=== PATIENT | male | born 1945 | race Caucasian/White ===

== ENCOUNTER 2023-04-28 11:12 | Inpatient (IN) | payer OTHER, SELFPAY ==
[2023-04-28 11:13] VITALS: BP 115/75; PULSE 95; RESP 18; TEMP 37.2; O2SAT 97
--- NOTE | 2023-04-28 11:30 | DI.RAD_ITS ---
Exam(s) XR TIB/FIB LT EXAM: XR TIB/FIB LT CLINICAL HISTORY: diabetic, redness. TECHNIQUE: 2D digital imaging was performed. COMPARISON: No exams were available for comparison FINDINGS: Two views There is no evidence of fracture of the tibia and fibula. Moderate degenerative changes are noted in the medial compartment of the knee. Tibial plateau is intact. There is edema throughout the foot and calf. No radiographic evidence of osteomyelitis of the tibia and fibula. IMPRESSION: No acute osseous findings. Abundant soft tissue swelling in the foot and calf. DATA REPOSITORY: RADIATION DOSE DELIVERED:
--- NOTE | 2023-04-28 11:41 | W.ED.GENAD ---
Discharge Plan Disposition Patient Disposition: Admit to [facility] Condition: Stable Discharge Details Clinical Impression: Necrosis of toe, Cellulitis of left leg, Atrial fibrillation, Diabetes mellitus type 2 in obese, Osteomyelitis of great toe of left foot Admit Date/Time: 04/28/23 14:12 Admit Provider: Cholo Craven Attending Provider: Cholo Craven Primary Care Provider: Mckayla,Local ED Provider: Mary Anderson Discharge Data Discharge Date/Time-TO BE ENTERED AT DEPARTURE: 04/28/23 16:11 Medical Decision Making This 78-year-old male with history of insulin-dependent diabetes presents with left foot infection States that started 2 days prior to arrival. Visiting from out of town, anticoagulated on Coumadin We will order x-rays, diagnostic blood work, and IV antibiotics with likely admission to the hospital INR 3.9, no active bleeding, will hold dose of Coumadin 's mild leukocytosis, 11,000, creatinine 2.0, suspect CKD but unfortunately [place] is from [place] state and we have had difficulty obtaining his records Case discussed with orthopedics after discussion with hospitalist and consult was performed by Cholo Martini, physician medical record assistant, in conjunction with consultation with Dr. Ibrahim, no indication for emergent great toe amputation, will treat with IV antibiotics, Vanco and Zosyn initiated Lactate negative, low suspicion for sepsis Patient agreeable to admission at this time Vanco Zosyn initiated, will hold Coumadin, INR 3.9, creatinine clearance 45, recommendation to continue full dose vancomycin Case discussed with Dr. [place], hospitalist, agreeable to admission at this time, full CODE STATUS HPI General Date/Time Provider Initiated Documentation: 04/28/23 11:22. HPI Narrative: This 78-year-old male presents with report of left lower leg and foot pain which he reports started on Tuesday. He is visiting from [place] and has been here approximately 2 weeks. Denies any fever. States he is in discomfort. States he has insulin-dependent diabetic and has a history of atrial flutter for which she takes Coumadin for. States he has a history of foot infections in the past. States his blood sugar was 92 this morning. Related Data Home Medications Medication Instructions Recorded Confirmed albuterol sulfate 90 mcg/actuation 2 puff inhalation PRN PRN 04/28/23 04/28/23 aerosol inhaler atorvastatin 40 mg tablet 40 mg PO DAILY 04/28/23 04/28/23 cholecalciferol (vitamin D3) 10 10 mcg PO DAILY 04/28/23 04/28/23 mcg (400 unit) tablet cyanocobalamin (vitamin B-12) 1,000 mcg IM QMONTH 04/28/23 04/28/23 1,000 mcg/mL injection kit empagliflozin 25 mg tablet 12.5 mg PO DAILY 04/28/23 04/28/23 latanoprost 0.005 % eye drops 1 drp ophthalmic (eye) DAILY 04/28/23 04/28/23 levothyroxine 200 mcg capsule 200 mcg PO DAILY 04/28/23 04/28/23 metformin 1,000 mg tablet 1,000 mg PO BID 04/28/23 04/28/23 olodaterol 2.5 mcg/actuation mist 2 inh inhalation DAILY 04/28/23 04/28/23 for inhalation pramipexole 1.5 mg tablet 1.5 mg PO QHS 04/28/23 04/28/23 sacubitril 49 mg-valsartan 51 mg 1 tab PO BID 04/28/23 04/28/23 tablet semaglutide 0.25 mg or 0.5 mg (2 0.5 mg subcut QWEEK 04/28/23 04/28/23 mg/3 mL) subcutaneous pen injector urea 20 % topical cream 1 applic topical BID 04/28/23 04/28/23 warfarin 5 mg tablet 5 mg PO DAILY 04/28/23 04/28/23 Allergies Allergy/AdvReac Type Severity Reaction Status Date / Time Penicillins Allergy Unverified 04/28/23 15:59 poison magno extract Allergy Unverified 04/28/23 15:59 ropinirole Allergy Unverified 04/28/23 15:59 General Stated Complaint: Cellulitis KAELA: 3 PFSH All Active Problems (Updated 04/29/23 @ 08:26 by ANGELIQUE Toro) Cellulitis of left leg (Acute) Restless leg syndrome (Acute) Hypothyroidism (Chronic) Diabetes mellitus type 2 in obese (Acute) Atrial fibrillation (Chronic) Osteomyelitis of great toe of left foot (Acute) Necrosis of toe (Acute) Social History Smoking/Tobacco Use Status: Never Smoking risk assessment performed?: Yes Alcohol Intake: current Alcohol Intake frequency: a few times a week Drug use: Never Substance use type: does not use Do you feel safe at home: Yes Do you feel safe in your relationship?: Yes Exam Narrative Exam Narrative: Patient alert and oriented, no acute distress, lungs clear to auscultation, cardiac rate rhythm regular, alert and oriented x4, bilateral pedal edema, excoriations noted to the second and third right digits without evidence of acute ulceration or cellulitis on right foot, left foot, DP and PT pulses intact, necrotic left toe with cyanosis along the plantar aspect of the great toe, ulceration noted, significantly malodorous, no crepitus, cellulitis with 3+ pedal edema to left lower extremity Course Vital Signs Vital signs: Vital Signs Temperature 37.2 C 04/28/23 11:13 Pulse 95 H 04/28/23 11:13 Respiratory Rate 18 04/28/23 11:13 Blood Pressure 115/75 04/28/23 11:13 Pulse Oximetry 97 04/28/23 11:13 Temperature 37.2 C 04/28/23 11:13 Pulse 95 H 04/28/23 11:13 Respiratory Rate 18 04/28/23 11:13 Respiratory Effort Normal 04/28/23 11:18 Blood Pressure 115/75 04/28/23 11:13 Pulse Oximetry 97 04/28/23 11:13 Pain Level 0 04/28/23 11:13 Lab/Test Results Lab/Test Results: 04/28/23 11:35 Blood Blood Culture - Pending 04/28/23 11:35 Blood Blood Culture - Pending PAWSS Have you Been Recently Intoxicated or Drunk Within the Last 30 days?: No Have you Ever Experienced Previous Episodes of Alcohol Withdrawal?: No Have you ever Experienced Withdrawal Seizures?: No Have you ever Experienced Delirium Tremens(DT)s?: No Have you ever undergone Alcohol Rehabilitation Treatment (i.e, inpt ot outpatient treatment programs)?: No Have you ever Experienced Blackouts?: No Have you ever Combined Alcohol with other Downers within the last 90 days?: No Have you ever Combined Alcohol with any other Substance of Abuse during the last 90 days?: No Positive Blood Alcohol level on Presentation? [PCS.BAL]: No Evidence of Increased Autonomic Activity (i.e. HR>120, tremor, sweating, agitation, nausea)?: No Result: 0
[2023-04-28 11:47] LABS: Lactate 1.2 mmol/L (0.6-1.4)
[2023-04-28 11:51] LABS: Abs Immature Grans 0.07 10^3/uL (0.0-0.06); Absolute Basophil Count 0.04 10^3/uL (0.0-0.2); Absolute Eosinophil Count 0.34 10^3/uL (0.0-0.7); Absolute Lymphocyte Count 2.44 10^3/uL (1.2-3.4); Absolute Monocyte Count 0.91 10^3/uL (0.1-0.8); Absolute Neutrophil Count 8.04 10^3/uL (1.2-6.7); Basophils % 0.3; Eosinophils % 2.9; HCT 34.7 % (40.0-50.0); Immature Grans % 0.6; Lymphocytes % 20.6; MCH 29.4 pg (27.0-33.0); MCHC 31.7 % (32.0-36.0); MCV 93 fL (80-95); MPV 9.6 fL (8.0-11.0); Monocytes % 7.7; Neutrophils % 67.9; Platelet Count 300 10^3/uL (130-400); RBC 3.74 10^6/uL (4.36-5.78); RDW 14.7 % (11.8-14.1); RDW-SD 50.8 fL; WBC 11.84 10^3/uL (4.4-10.8)
[2023-04-28 12:01] LABS: INR 3.9 (0.9-1.1); Prothrombin Time 39.5 sec (9.3-11.0)
[2023-04-28 12:07] LABS: ALT 14 U/L (16-63); AST 10 U/L (15-37); Albumin 3.3 g/dL (3.4-5.0); Alkaline Phosphatase 76 U/L (46-116); Anion Gap 10.8 mmol/L (3-11); BUN 47 mg/dL (7-18); Bilirubin, Total 0.9 mg/dL (0.2-1.0); C-Reactive Protein 12.55 mg/dL (0.0-0.3); CO2 28.2 mmol/L (21.0-32.0); Calcium 9.2 mg/dL (8.5-10.1); Chloride 102 mmol/L (98-107); Estimated GFR 33.95 (mL/min/1.73m2); Glucose 91 mg/dL (74-106); Potassium 4.1 mmol/L (3.5-5.1); Sodium 141 mmol/L (136-145); Total Protein 8.7 g/dL (6.4-8.2)
[2023-04-28] MEDS: PIPERACILLIN/TAZO 3.375 GM in Normal Saline 50 ML IVPB ×2 (12:14→20:39)
[2023-04-28] MEDS: VANCOMYCIN/WATER (PEG) 2 GM/400 ML BAG IV (12:52)
--- NOTE | 2023-04-28 13:26 | DI.RAD_ITS ---
Exam(s) XR FOOT LT COMPLETE EXAM: XR FOOT LT COMPLETE CLINICAL HISTORY: great toe tissue necrosis. TECHNIQUE: 2D digital imaging was performed. COMPARISON: No exams were available for comparison FINDINGS: 3 views There is prominent soft tissue swelling over the dorsal aspect of the foot. No evidence of acute fra cture or diastasis of the Lisfranc joint. There is irregularity of the skin overlying the distal aspect of the great toe. Probably a combinati on of skin loss and a bandage material. There is no evidence of obvious fracture of the distal phala nx of the great toe nor obvious radiographic evidence of osteomyelitis of the tuft of the distal phal anx. There is no gas in the soft tissues. IMPRESSION: Great toe findings as above. No obvious radiographic evidence of osteomyelitis. If clinically indic ated follow-up MRI can be performed. DATA REPOSITORY: RADIATION DOSE DELIVERED:
--- NOTE | 2023-04-28 14:06 | OCONE_ITS ---
Date of service: 04/28/23 Time of Service: 14:06 Assessment and Plan Assessment and plan (1) Necrosis of toe: Status: Acute Assessment and plan: 78-year-old gentleman with left great toe infection due to chronic, poorly controlled diabetes Request from ANGELIQUE Anderson in the ED for orthopedic consultation. Mr. Parra is an insulin-dependent diabetic, history of atrial flutter anticoagulated with warfarin, restless leg syndrome, unknown baseline renal status, presented to the ER for reoccurring left foot infection. Patient states that he was seen by his rn ambulatory in [place] approximately 1 month ago. He would guess his symptoms have been going on for couple of weeks but he noticed bleeding coming from his toe over the past 48 hours and swelling which prompted his ER visit. He is pl anning to return home to [place] on Tuesday by driving. Medical work-up in the ER reveals minimally elevated white blood cell count, elevated CRP, no definitive findings of osteomyelitis on x-ray. Patient received IV vancomycin and Zosyn. The hospitalist team was contacted for a medical admission and IV antibiotics; however, they were concerned that the patient may require toe amputation. Unfortunately the patient is a poor historian and we do not have an accurate depiction of his past medical history or medications, records have been requested. Patient states that his last A1c roughly 1 month ago was 9.2. Physical examination reveals a nontoxic 78-year-old gentleman speaking in full sentences and in no respiratory distress. Pulse is in the 90s. A bilateral lower extremities reveal chronic hyperpigmentation with multiple calluses and dry flaking skin. Left great toe with erythema, warmth, tenderness, swelling. The swelling does extend through the foot. There is also mild erythema spreading proximally. There are 2 areas of necrosis on the great toe, both medially, and the distal tip which extends across almost the entire flexor component of toe, sparing the medial area. The inferior portion of the necrosis is draining a malodorous bloody-purulent drainage. Relatively spares the remainder of the foot and remainder of the toes. Patient appears to have chronic great toe superficial, possibly deep soft tissue necrosis with local cellulitis. X-ray of tib-fib and foot do not reveal any obvious signs of osteomyelitis. White blood cell count 11.84 INR 3.9, creat inine 2.0 lactate of 1.2 CRP 12.55. At this time no clear indication for emergent amputation. Recommend optimizing medical management and antibiotics. Patient is returning to [place], leaves Tuesday. Recommend outpatient follow- up through his podiatry team or referral to vascular surgery for further management of his diabetic great toe and foot. Recommendations: Strict elevation, daily soaks great toe in a 50: 50% saline and peroxide or Betadine. Allowed to dry. Apply dry dressing as needed to absorb drainage. Consider wound care consult. PFSH All Active Problems (Updated 04/28/23 @ 14:38 by Berta Salgado NP) Diabetes mellitus type 2 in obese (Acute) Atrial fibrillation (Chronic) Osteomyelitis of great toe of left foot (Acute) Necrosis of toe (Acute) Social History Smoking/Tobacco Use Status: Never Smoking risk assessment performed?: Yes Alcohol Intake: current Alcohol Intake frequency: a few times a week Drug use: Never Substance use type: does not use Do you feel safe at home: Yes Do you feel safe in your relationship?: Yes Results Last Vital Signs Temp 37.2 C 04/28/23 11:13 Pulse 95 H 04/28/23 11:13 Resp 18 04/28/23 11:13 BP 115/75 04/28/23 11:13 Pulse Ox 97 04/28/23 11:13 Labs 04/28/23 11:40 04/28/23 11:40 Labs: Laboratory Results - last 24 hr 04/28/23 04/28/23 04/28/23 11:40 11:40 11:40 WBC 11.84 H RBC 3.74 L Hgb 11.0 L Hct 34.7 L MCV 93 MCH 29.4 MCHC 31.7 L RDW 14.7 H Plt Count 300 MPV 9.6 Immature Gran % 0.6 Neutrophils % 67.9 Lymphocytes % 20.6 Monocytes % 7.7 Eosinophils % 2.9 Basophils % 0.3 Nucleated RBC % 0.0 Absolute Neutrophils 8.04 H Absolute Lymphocytes 2.44 Absolute Monocytes 0.91 H Absolute Eosinophils 0.34 Absolute Basophils 0.04 PT INR VBG Lactate 1.2 Sodium 141 Potassium 4.1 Chloride 102 Carbon Dioxide 28.2 Anion Gap 10.8 BUN 47 H Creatinine 2.0 H Est GFR (CKD-EPI 2020) 33.95 Glucose 91 Calcium 9.2 Total Bilirubin 0.9 AST 10 L ALT 14 L Alkaline Phosphatase 76 C-Reactive Protein 12.55 H Total Protein 8.7 H Albumin 3.3 L 04/28/23 11:40 WBC RBC Hgb Hct MCV MCH MCHC RDW Plt Count MPV Immature Gran % Neutrophils % Lymphocytes % Monocytes % Eosinophils % Basophils % Nucleated RBC % Absolute Neutrophils Absolute Lymphocytes Absolute Monocytes Absolute Eosinophils Absolute Basophils PT 39.5 H INR 3.9 H VBG Lactate Sodium Potassium Chloride Carbon Dioxide Anion Gap BUN Creatinine Est GFR (CKD-EPI 2020) Glucose Calcium Total Bilirubin AST ALT Alkaline Phosphatase C-Reactive Protein Total Protein Albumin
--- NOTE | 2023-04-28 14:21 | W.PM.HP.N ---
Date of service: 04/28/23 Time of Service: 14:21 Assessment and Plan Assessment and plan (1) Osteomyelitis of great toe of left foot: Status: Acute Assessment and plan: plan to admit to med/surg continue vanco/zosyn follow inflammatory markers elevate as much as possible throughout the day plan outpatient follow up with mock up builder when he returns home next week. (2) Atrial fibrillation: Status: Chronic Assessment and plan: rate controlled, anticoagulated on coumadin. INR 3.9, will hold tonight dose and recheck in am no additional DVT prophylaxis needed at this time. (3) Diabetes mellitus type 2 in obese: Status: Acute Assessment and plan: will continue home diabetes meds (4) Hypothyroidism: Status: Chronic Assessment and plan: continue levothyroxine check TSH (5) Restless leg syndrome: Status: Acute Assessment and plan: continue home medications discussed with DR Craven. History of Present Illness History of Present Illness Chief Complaint: left great toe infection Narrative: This is a 78-year-old male patient with history of diabetes mellitus type 2 who is followed by a mock up builder back in [place] reportedly visiting his [id number] having arrived Tuesday planning to leave next Tuesday. States that his left lower extremity developed significant swelling erythema and pain over the past 2 days prompting his visit here to the emergency department. He states he has had multiple diabetic foot infections and is followed closely by podiatry he last saw his mock up builder about 1 month ago. He denies any fever or chills or signs of systemic infection. His work-up in the emergency department included imaging that is concerning for osteomyelitis. He was seen by orthopedics as we do not have podiatry here and no emergent surgical recommendations at this time. He was given vancomycin and Zosyn and plan is to admit to medical surgical unit for IV antibiotics will down stepped to oral when stable and plan is to follow-up with his mock up builder when he returns home. Review of Systems All systems reviewed & are unremarkable except as noted in HPI and below PFSH All Active Problems (Updated 04/28/23 @ 17:35 by Berta Salgado NP) Restless leg syndrome (Acute) Hypothyroidism (Chronic) Diabetes mellitus type 2 in obese (Acute) Atrial fibrillation (Chronic) Osteomyelitis of great toe of left foot (Acute) Necrosis of toe (Acute) Social History Smoking/Tobacco Use Status: Never Smoking risk assessment performed?: Yes Alcohol Intake: current Alcohol Intake frequency: a few times a week Drug use: Never Substance use type: does not use Do you feel safe at home: Yes Do you feel safe in your relationship?: Yes Meds Allergies and Home Medications Allergies Allergy/AdvReac Type Severity Reaction Status Date / Time Penicillins Allergy Unverified 04/28/23 15:59 poison magno extract Allergy Unverified 04/28/23 15:59 ropinirole Allergy Unverified 04/28/23 15:59 Home Medications Medication Instructions Recorded Confirmed Type albuterol sulfate 90 mcg/actuation 2 puff inhalation PRN PRN 04/28/23 04/28/23 History aerosol inhaler atorvastatin 40 mg tablet 40 mg PO DAILY 04/28/23 04/28/23 History cholecalciferol (vitamin D3) 10 10 mcg PO DAILY 04/28/23 04/28/23 History mcg (400 unit) tablet cyanocobalamin (vitamin B-12) 1,000 mcg IM QMONTH 04/28/23 04/28/23 History 1,000 mcg/mL injection kit empagliflozin 25 mg tablet 12.5 mg PO DAILY 04/28/23 04/28/23 History latanoprost 0.005 % eye drops 1 drp ophthalmic (eye) DAILY 04/28/23 04/28/23 History levothyroxine 200 mcg capsule 200 mcg PO DAILY 04/28/23 04/28/23 History metformin 1,000 mg tablet 1,000 mg PO BID 04/28/23 04/28/23 History olodaterol 2.5 mcg/actuation mist 2 inh inhalation DAILY 04/28/23 04/28/23 History for inhalation pramipexole 1.5 mg tablet 1.5 mg PO QHS 04/28/23 04/28/23 History sacubitril 49 mg-valsartan 51 mg 1 tab PO BID 04/28/23 04/28/23 History tablet semaglutide 0.25 mg or 0.5 mg (2 0.5 mg subcut QWEEK 04/28/23 04/28/23 History mg/3 mL) subcutaneous pen injector urea 20 % topical cream 1 applic topical BID 04/28/23 04/28/23 History warfarin 5 mg tablet 5 mg PO DAILY 04/28/23 04/28/23 History Exam Const General: cooperative, comfortable and no acute distress Nutritional Appearance: obese Orientation: alert, awake and oriented x3 HENMT Head: normal to inspection, normocephalic and atraumatic Face and sinus: normal facial exam Mouth: oral mucosae normal Chest Chest: normal inspection of the chest Resp Effort & Inspection: normal respiratory effort Cardio Rate: regular rate GI Inspection: distended (round abd, soft non tender) Palpation: soft Skin General skin exam: crusts, dry skin, erythema (left, not impressively so, marked and falls just below knee) and other (chronic discoloration to bilateral lower extremities. ) Lesions: lesion noted (left great toe, erythema to 2 and 3 rd digit also) and other (areas of necrosis to left great toe, ) Nails: discolored and yellow and thickened Neuro General: patient alert, patient awake, patient oriented x3 and no focal motor deficits Extrem General: edema Laterality: left (significantly larger than right up to knee, not weeping) Results Labs 04/28/23 11:40 04/28/23 11:40 Labs: Laboratory Results - last 24 hr 04/28/23 04/28/23 04/28/23 11:40 11:40 11:40 WBC 11.84 H RBC 3.74 L Hgb 11.0 L Hct 34.7 L MCV 93 MCH 29.4 MCHC 31.7 L RDW 14.7 H Plt Count 300 MPV 9.6 Immature Gran % 0.6 Neutrophils % 67.9 Lymphocytes % 20.6 Monocytes % 7.7 Eosinophils % 2.9 Basophils % 0.3 Nucleated RBC % 0.0 Absolute Neutrophils 8.04 H Absolute Lymphocytes 2.44 Absolute Monocytes 0.91 H Absolute Eosinophils 0.34 Absolute Basophils 0.04 PT INR VBG Lactate 1.2 Sodium 141 Potassium 4.1 Chloride 102 Carbon Dioxide 28.2 Anion Gap 10.8 BUN 47 H Creatinine 2.0 H Est GFR (CKD-EPI 2020) 33.95 Glucose 91 Calcium 9.2 Total Bilirubin 0.9 AST 10 L ALT 14 L Alkaline Phosphatase 76 C-Reactive Protein 12.55 H Total Protein 8.7 H Albumin 3.3 L 04/28/23 11:40 WBC RBC Hgb Hct MCV MCH MCHC RDW Plt Count MPV Immature Gran % Neutrophils % Lymphocytes % Monocytes % Eosinophils % Basophils % Nucleated RBC % Absolute Neutrophils Absolute Lymphocytes Absolute Monocytes Absolute Eosinophils Absolute Basophils PT 39.5 H INR 3.9 H VBG Lactate Sodium Potassium Chloride Carbon Dioxide Anion Gap BUN Creatinine Est GFR (CKD-EPI 2020) Glucose Calcium Total Bilirubin AST ALT Alkaline Phosphatase C-Reactive Protein Total Protein Albumin Last Vital Signs Temp 37.2 C 04/28/23 11:13 Pulse 95 H 04/28/23 11:13 Resp 18 04/28/23 11:13 BP 115/75 04/28/23 11:13 Pulse Ox 97 04/28/23 11:13 PAWSS Have you Been Recently Intoxicated or Drunk Within the Last 30 days?: No Have you Ever Experienced Previous Episodes of Alcohol Withdrawal?: No Have you ever Experienced Withdrawal Seizures?: No Have you ever Experienced Delirium Tremens(DT)s?: No Have you ever undergone Alcohol Rehabilitation Treatment (i.e, inpt ot outpatient treatment programs)?: No Have you ever Experienced Blackouts?: No Have you ever Combined Alcohol with other Downers within the last 90 days?: No Have you ever Combined Alcohol with any other Substance of Abuse during the last 90 days?: No Positive Blood Alcohol level on Presentation? [PCS.BAL]: No Evidence of Increased Autonomic Activity (i.e. HR>120, tremor, sweating, agitation, nausea)?: No Result: 0 Time Spent Time spent with Patient: 40-54 minutes Time was spent: preparing to see the patient(eg.review tests), obtaining and/or reviewing separately otained hiistory, ordering medications,tests, procedures, indepentently interpreting results and counseling the patient
[2023-04-28 16:01] VITALS: BP 119/66; PULSE 88; RESP 18; O2SAT 95
[2023-04-28 16:23] VITALS: BP 123/74; PULSE 64; RESP 16; TEMP 35.8; O2SAT 96
[2023-04-28 16:31] VITALS: BP 123/74; PULSE 64; RESP 16; TEMP 35.8; O2SAT 96
[2023-04-28 18:25] LABS: Hemoglobin A1C 7.8 % (<5.7)
[2023-04-28 18:28] LABS: TSH (W/Ref FT4) 0.74 uIU/mL (0.36-3.74)
[2023-04-28] MEDS: Normal Saline 1,000 ML 100 ML IV (18:39)
[2023-04-28] MEDS: Sacubitril/Valsartan 49 mg/51 mg TAB 1 EACH PO (22:01)
[2023-04-28] MEDS: Pramipexole 0.25 MG TAB 1.5 MG PO (22:02)
[2023-04-28] MEDS: Melatonin 3 MG TAB PO (22:03)
[2023-04-28] MEDS: Acetaminophen 325 MG TAB 650 MG PO (22:03)
[2023-04-28 22:43] VITALS: BP 115/65; PULSE 87; RESP 18; TEMP 36; O2SAT 95
[2023-04-28] MEDS: VANCOMYCIN 1,000 MG in Normal Saline 250 ML 166.667 MG IVPB (23:55)
[2023-04-29] MEDS: PIPERACILLIN/TAZO 3.375 GM in Normal Saline 50 ML IVPB ×4 (01:56→20:13)
[2023-04-29 06:34] LABS: Abs Immature Grans 0.03 10^3/uL (0.0-0.06); Absolute Basophil Count 0.05 10^3/uL (0.0-0.2); Absolute Eosinophil Count 0.41 10^3/uL (0.0-0.7); Absolute Lymphocyte Count 2.03 10^3/uL (1.2-3.4); Absolute Neutrophil Count 5.36 10^3/uL (1.2-6.7); Basophils % 0.6; Eosinophils % 4.7; HCT 32.1 % (40.0-50.0); Immature Grans % 0.3; Lymphocytes % 23.4; MCH 29.2 pg (27.0-33.0); MCHC 31.2 % (32.0-36.0); MCV 94 fL (80-95); MPV 9.3 fL (8.0-11.0); Monocytes % 9.2; Neutrophils % 61.8; Platelet Count 262 10^3/uL (130-400); RBC 3.42 10^6/uL (4.36-5.78); RDW 14.6 % (11.8-14.1); RDW-SD 50.3 fL; WBC 8.68 10^3/uL (4.4-10.8)
[2023-04-29 06:43] LABS: INR 3.8 (0.9-1.1); Prothrombin Time 38.5 sec (9.3-11.0)
[2023-04-29 06:45] LABS: Anion Gap 9.8 mmol/L (3-11); BUN 38 mg/dL (7-18); C-Reactive Protein 8.45 mg/dL (0.0-0.3); CO2 27.2 mmol/L (21.0-32.0); CREATININE 1.7 mg/dL (0.70-1.30); Calcium 8.9 mg/dL (8.5-10.1); Chloride 107 mmol/L (98-107); Estimated GFR 41.26 (mL/min/1.73m2); Glucose 91 mg/dL (74-106); Potassium 3.6 mmol/L (3.5-5.1); Sodium 144 mmol/L (136-145)
[2023-04-29 07:33] VITALS: BP 94/60; PULSE 69; RESP 18; TEMP 36.3; O2SAT 96
[2023-04-29] MEDS: Cholecalciferol (Vitamin D3) 400 UNIT TAB PO (08:21)
[2023-04-29] MEDS: Empaglifozin 25 MG TAB 12.5 MG PO (08:21)
[2023-04-29] MEDS: Atorvastatin 40 MG TAB PO (08:21)
[2023-04-29] MEDS: metFORMIN 500 MG TAB 1000 MG PO ×2 (08:22→17:21)
[2023-04-29] MEDS: Levothyroxine 100 MCG TAB 200 MCG PO (08:22)
--- NOTE | 2023-04-29 13:07 | PGE_ITS ---
Date of Service Date of service: 04/29/23 Time of Service: 13:07 Assessment and Plan Assessment and plan (1) Osteomyelitis of great toe of left foot: Status: Acute Assessment and plan: improved overnight with IV abx and elevation continue vanco/zosyn day 2 inflammatory markers improving elevate as much as possible throughout the day plan outpatient follow up with switching operator when he returns home next week. (2) Atrial fibrillation: Status: Chronic Assessment and plan: rate controlled, anticoagulated on coumadin. INR 3.8, will hold again tonight dose and recheck in am no additional DVT prophylaxis needed at this time. (3) Diabetes mellitus type 2 in obese: Status: Acute Assessment and plan: will continue home diabetes meds A1C 7.8 (4) Hypothyroidism: Status: Chronic Assessment and plan: continue levothyroxine TSH 0.74 (5) Restless leg syndrome: Status: Acute Assessment and plan: continue home medications (6) Obstructive sleep apnea: Status: Chronic Assessment and plan: continue home cpap when sleeping (7) Discharge planning issues: Status: Acute Assessment and plan: plan to downstep to oral antibiotics so he can return home for definitive care with his outpatient team discussed with DR Craven Subjective Subjective Patient reports: no new complaints and feels better Interval history since last seen: decreased swelling and redness Exam Const General: cooperative, comfortable and no acute distress Nutritional Appearance: obese Orientation: alert, awake and oriented x3 HENMT Head: normal to inspection, normocephalic and atraumatic Face and sinus: normal facial exam Mouth: oral mucosae normal Chest Chest: normal inspection of the chest Resp Effort & Inspection: normal respiratory effort Cardio Rate: regular rate GI Inspection: distended (round abd, soft non tender) Palpation: soft Skin General skin exam: crusts, dry skin, erythema (left, not impressively so, marked and falls just below knee) and other (chronic discoloration to bilateral lower extremities. ) Lesions: lesion noted (left great toe, erythema to 2 and 3 rd digit also) and other (areas of necrosis to left great toe, ) Nails: discolored and yellow and thickened Neuro General: patient alert, patient awake, patient oriented x3 and no focal motor deficits Extrem General: edema Laterality: left (significantly larger than right up to knee, not weeping) Objective Last Vital Signs Temp 36.3 C L 04/29/23 07:33 Pulse 69 04/29/23 07:33 Resp 18 04/29/23 07:33 BP 94/60 L 04/29/23 07:33 Pulse Ox 96 04/29/23 07:33 Laboratory Results - last 24 hr 04/28/23 04/28/23 04/29/23 11:40 11:40 06:07 WBC RBC Hgb Hct MCV MCH MCHC RDW Plt Count MPV Immature Gran % Neutrophils % Lymphocytes % Monocytes % Eosinophils % Basophils % Nucleated RBC % Absolute Neutrophils Absolute Lymphocytes Absolute Monocytes Absolute Eosinophils Absolute Basophils PT INR Sodium 144 Potassium 3.6 Chloride 107 Carbon Dioxide 27.2 Anion Gap 9.8 BUN 38 H Creatinine 1.7 H Est GFR (CKD-EPI 2020) 41.26 Glucose 91 Hemoglobin A1c 7.8 H Calcium 8.9 C-Reactive Protein 8.45 H TSH 0.74 04/29/23 04/29/23 06:07 06:07 WBC 8.68 RBC 3.42 L Hgb 10.0 L Hct 32.1 L MCV 94 MCH 29.2 MCHC 31.2 L RDW 14.6 H Plt Count 262 MPV 9.3 Immature Gran % 0.3 Neutrophils % 61.8 Lymphocytes % 23.4 Monocytes % 9.2 Eosinophils % 4.7 Basophils % 0.6 Nucleated RBC % 0.0 Absolute Neutrophils 5.36 Absolute Lymphocytes 2.03 Absolute Monocytes 0.80 Absolute Eosinophils 0.41 Absolute Basophils 0.05 PT 38.5 H INR 3.8 H Sodium Potassium Chloride Carbon Dioxide Anion Gap BUN Creatinine Est GFR (CKD-EPI 2020) Glucose Hemoglobin A1c Calcium C-Reactive Protein TSH PAWSS Have you Been Recently Intoxicated or Drunk Within the Last 30 days?: No Have you Ever Experienced Previous Episodes of Alcohol Withdrawal?: No Have you ever Experienced Withdrawal Seizures?: No Have you ever Experienced Delirium Tremens(DT)s?: No Have you ever undergone Alcohol Rehabilitation Treatment (i.e, inpt ot outpatient treatment programs)?: No Have you ever Experienced Blackouts?: No Have you ever Combined Alcohol with other Downers within the last 90 days?: No Have you ever Combined Alcohol with any other Substance of Abuse during the last 90 days?: No Positive Blood Alcohol level on Presentation? [PCS.BAL]: No Evidence of Increased Autonomic Activity (i.e. HR>120, tremor, sweating, agitation, nausea)?: No Result: 0 Time Spent with Patient Time Spent with Patient: 35-49 minutes Time was spent: preparing to see the patient(eg.review tests), obtaining and/or reviewing separately otained hiistory, ordering medications,tests, procedures, indepentently interpreting results and counseling the patient
[2023-04-29 15:20] VITALS: BP 100/60; PULSE 61; TEMP 35.7; O2SAT 98
[2023-04-29] MEDS: Insulin Aspart 300 UNITS/3 ML PEN SC (17:20)
--- NOTE | 2023-04-29 17:55 | INITIAL_ITS ---
Date of service: 04/29/23 Time of Service: 18:34 Care Management Initial Assmt Initial Assessment REASON FOR HOSPITALIZATION:: Osteomyelitis, Diabetic foot infection; great toe of left foot CURRENT FUNCTIONAL STATUS:: Planning to return to [place] on Tuesday. ADVANCE DIRECTIVES:: None on file INSURANCE COVERAGE / FINANCIAL ISSUES:: [facility] PRIMARY CARE PHYSICIAN:: No local POTENTIAL DISCHARGE NEEDS:: improved overnight with IV abx and elevation continue vanco/zosyn day 2 inflammatory markers improving elevate as much as possible throughout the day plan outpatient follow up with silverware etcher when he returns home next week. PLAN:: Per provider, Wilfred plans on returning to [place] on Tuesday, he is agreeable to IV ABX treatment until he leaves. Clinical information will be provided to patient on discharge and scanned to local providers in his home state. PFSH All Active Problems (Updated 04/29/23 @ 13:11 by Berta Salgado NP) Discharge planning issues (Acute) Obstructive sleep apnea (Chronic) Cellulitis of left leg (Acute) Restless leg syndrome (Acute) Hypothyroidism (Chronic) Diabetes mellitus type 2 in obese (Acute) Atrial fibrillation (Chronic) Osteomyelitis of great toe of left foot (Acute) Necrosis of toe (Acute) Social History Smoking/Tobacco Use Status: Never Smoking risk assessment performed?: Yes Alcohol Intake: current Alcohol Intake frequency: a few times a week Drug use: Never Substance use type: does not use Do you feel safe at home: Yes Do you feel safe in your relationship?: Yes
[2023-04-29] MEDS: Acetaminophen 325 MG TAB 650 MG PO (20:12)
[2023-04-29] MEDS: Sacubitril/Valsartan 49 mg/51 mg TAB 1 EACH PO (20:13)
[2023-04-29] MEDS: Melatonin 3 MG TAB PO (20:13)
[2023-04-29 21:53] VITALS: BP 104/66; PULSE 62; RESP 16; TEMP 36; O2SAT 97
[2023-04-29] MEDS: Latanoprost 0.005% 2.5 ML BTL OU (21:55)
[2023-04-29] MEDS: Pramipexole 0.25 MG TAB 1.5 MG PO (21:55)
[2023-04-29] MEDS: VANCOMYCIN/WATER (PEG) 1 GM/200 ML BAG IV (23:54)
[2023-04-30] MEDS: PIPERACILLIN/TAZO 3.375 GM in Normal Saline 50 ML IVPB ×4 (01:38→21:06)
[2023-04-30 04:52] VITALS: BP 103/69; PULSE 91; RESP 16; TEMP 36; O2SAT 97
[2023-04-30] MEDS: Levothyroxine 100 MCG TAB 200 MCG PO (04:55)
[2023-04-30] MEDS: Acetaminophen 325 MG TAB 650 MG PO (04:55)
[2023-04-30 06:53] LABS: INR 2.9 (0.9-1.1); Prothrombin Time 29.2 sec (9.3-11.0)
[2023-04-30 08:00] VITALS: BP 102/62; PULSE 63; RESP 16; TEMP 35.5; O2SAT 98
[2023-04-30] MEDS: Atorvastatin 40 MG TAB PO (08:17)
[2023-04-30] MEDS: Insulin Aspart 300 UNITS/3 ML PEN SC ×3 (08:17→17:43)
[2023-04-30] MEDS: Empaglifozin 25 MG TAB 12.5 MG PO (08:18)
[2023-04-30] MEDS: Cholecalciferol (Vitamin D3) 400 UNIT TAB PO (08:18)
[2023-04-30] MEDS: metFORMIN 500 MG TAB 1000 MG PO ×2 (08:18→17:44)
[2023-04-30] MEDS: Sacubitril/Valsartan 49 mg/51 mg TAB 1 EACH PO ×2 (08:18→21:59)
--- NOTE | 2023-04-30 11:59 | PGE_ITS ---
Date of Service Date of service: 04/30/23 Time of Service: 11:59 Assessment and Plan Assessment and plan (1) Osteomyelitis of great toe of left foot: Status: Acute Assessment and plan: continues to show improvement with IV abx and elevation, now stated pain resolved continue vanco/zosyn day 3 inflammatory markers improving elevate as much as possible throughout the day plan outpatient follow up with server security administrator when he returns home next week. (2) Atrial fibrillation: Status: Chronic Assessment and plan: rate controlled, anticoagulated on coumadin. INR 2.9, will resume coumadin and closely follow no additional DVT prophylaxis needed at this time. (3) Diabetes mellitus type 2 in obese: Status: Acute Assessment and plan: blood sugars well controlled, will continue home diabetes meds A1C 7.8 (4) Hypothyroidism: Status: Chronic Assessment and plan: continue levothyroxine TSH 0.74 (5) Restless leg syndrome: Status: Acute Assessment and plan: continue home medications (6) Obstructive sleep apnea: Status: Chronic Assessment and plan: continue home cpap when sleeping (7) Discharge planning issues: Status: Acute Assessment and plan: plan to downstep to oral antibiotics so he can return home for definitive care with his outpatient team discussed with DR Jackson Subjective Subjective Patient reports: no new complaints, feels better, pain is less, tolerating liquids well, tolerating a regular diet, voiding w/o difficulty and afebrile Exam Const General: cooperative, comfortable and no acute distress Nutritional Appearance: obese Orientation: alert, awake and oriented x3 HENMT Head: normal to inspection, normocephalic and atraumatic Face and sinus: normal facial exam Mouth: oral mucosae normal Chest Chest: normal inspection of the chest Resp Effort & Inspection: normal respiratory effort Cardio Rate: regular rate GI Inspection: distended (round abd, soft non tender) Palpation: soft Skin General skin exam: crusts, dry skin, erythema (left, not impressively so, marked and falls just below knee) and other (chronic discoloration to bilateral lower extremities. ) Lesions: lesion noted (left great toe, erythema to 2 and 3 rd digit also) and other (areas of necrosis to left great toe, ) Nails: discolored and yellow and thickened Neuro General: patient alert, patient awake, patient oriented x3 and no focal motor deficits Extrem General: edema Laterality: left (significantly larger than right up to knee, not weeping) Objective Last Vital Signs Temp 35.5 C L 04/30/23 08:00 Pulse 63 04/30/23 08:00 Resp 16 04/30/23 08:00 BP 102/62 04/30/23 08:00 Pulse Ox 98 04/30/23 08:00 Laboratory Results - last 24 hr 04/29/23 04/30/23 22:58 06:10 PT 29.2 H INR 2.9 H Vancomycin Trough 15.0 PAWSS Have you Been Recently Intoxicated or Drunk Within the Last 30 days?: No Have you Ever Experienced Previous Episodes of Alcohol Withdrawal?: No Have you ever Experienced Withdrawal Seizures?: No Have you ever Experienced Delirium Tremens(DT)s?: No Have you ever undergone Alcohol Rehabilitation Treatment (i.e, inpt ot outpatient treatment programs)?: No Have you ever Experienced Blackouts?: No Have you ever Combined Alcohol with other Downers within the last 90 days?: No Have you ever Combined Alcohol with any other Substance of Abuse during the last 90 days?: No Positive Blood Alcohol level on Presentation? [PCS.BAL]: No Evidence of Increased Autonomic Activity (i.e. HR>120, tremor, sweating, agitation, nausea)?: No Result: 0 Time Spent with Patient Time Spent with Patient: 35-49 minutes Time was spent: preparing to see the patient(eg.review tests), obtaining and/or reviewing separately otained hiistory, ordering medications,tests, procedures, indepentently interpreting results and counseling the patient
[2023-04-30 15:08] VITALS: BP 118/68; PULSE 60; RESP 18; TEMP 36.5; O2SAT 98
[2023-04-30] MEDS: Latanoprost 0.005% 2.5 ML BTL OU (22:00)
[2023-04-30] MEDS: Pramipexole 0.25 MG TAB 1.5 MG PO (22:00)
[2023-04-30] MEDS: Warfarin 5 MG TAB PO (22:00)
[2023-04-30 23:00] VITALS: BP 116/63; PULSE 90; RESP 18; TEMP 35.5; O2SAT 97
[2023-05-01] MEDS: VANCOMYCIN/WATER (PEG) 1 GM/200 ML BAG IV (00:08)
[2023-05-01] MEDS: Acetaminophen 325 MG TAB 650 MG PO (00:14)
[2023-05-01] MEDS: PIPERACILLIN/TAZO 3.375 GM in Normal Saline 50 ML IVPB ×4 (03:00→19:57)
[2023-05-01 06:16] LABS: INR 2.4 (0.9-1.1)
[2023-05-01] MEDS: Levothyroxine 100 MCG TAB 200 MCG PO (06:25)
--- NOTE | 2023-05-01 07:02 | RESPIRATORY ---
Addendum entered by Chevy Lujan 05/01/23 07:03: Model: ResMed [id number] Original Note: Pt's own CPAP machine Auto-CPAP Min: 6 cmH2O Max: 20 cmH2O No O2 bleed in. DME: [facility].
[2023-05-01 07:56] VITALS: BP 109/70; PULSE 93; RESP 18; TEMP 37; O2SAT 94
[2023-05-01] MEDS: Insulin Aspart 300 UNITS/3 ML PEN SC ×3 (08:49→16:29)
[2023-05-01] MEDS: metFORMIN 500 MG TAB 1000 MG PO ×2 (08:50→16:29)
[2023-05-01] MEDS: Cholecalciferol (Vitamin D3) 400 UNIT TAB PO (08:51)
[2023-05-01] MEDS: Sacubitril/Valsartan 49 mg/51 mg TAB 1 EACH PO ×2 (08:51→19:56)
[2023-05-01] MEDS: Empaglifozin 25 MG TAB 12.5 MG PO (08:52)
[2023-05-01] MEDS: Atorvastatin 40 MG TAB PO (08:53)
[2023-05-01] MEDS: Normal Saline Flush 10 ML SYR (09:11)
[2023-05-01 10:50] VITALS: BP 118/64; PULSE 88; RESP 18; TEMP 36.5; O2SAT 97
--- NOTE | 2023-05-01 13:33 | W.PM.PROGNOT ---
Date of Service Date of service: 05/01/23 Time of Service: 13:34 Assessment and Plan Assessment and plan (1) Osteomyelitis of great toe of left foot: Status: Acute Assessment and plan: continues to show improvement with IV abx and elevation, now stated pain resolved continue vanco/zosyn day 4 inflammatory markers improving elevate as much as possible throughout the day plan outpatient follow up with strategic partnership representative when he returns home next week. (2) Atrial fibrillation: Status: Chronic Assessment and plan: rate controlled, anticoagulated on coumadin. INR 2.9, will resume coumadin and closely follow no additional DVT prophylaxis needed at this time. (3) Diabetes mellitus type 2 in obese: Status: Acute Assessment and plan: blood sugars well controlled, will continue home diabetes meds A1C 7.8 (4) Hypothyroidism: Status: Chronic Assessment and plan: continue levothyroxine TSH 0.74 (5) Restless leg syndrome: Status: Acute Assessment and plan: continue home medications (6) Obstructive sleep apnea: Status: Chronic Assessment and plan: continue home cpap when sleeping (7) Discharge planning issues: Status: Acute Assessment and plan: plan to downstep to oral antibiotics so he can return home for definitive care with his outpatient team discussed with DR Jackson Subjective Subjective Patient reports: no new complaints, feels better, pain is less (resolved), tolerating liquids well, tolerating a regular diet and afebrile Exam Const General: cooperative, comfortable and no acute distress Nutritional Appearance: obese Orientation: alert, awake and oriented x3 HENMT Head: normal to inspection, normocephalic and atraumatic Face and sinus: normal facial exam Mouth: oral mucosae normal Chest Chest: normal inspection of the chest Resp Effort & Inspection: normal respiratory effort Cardio Rate: regular rate GI Inspection: distended (round abd, soft non tender) Palpation: soft Skin General skin exam: crusts, dry skin, erythema (left, not impressively so, marked and falls just below knee) and other (chronic discoloration to bilateral lower extremities. ) Lesions: lesion noted (left great toe, erythema to 2 and 3 rd digit also) and other (areas of necrosis to left great toe, ) Nails: discolored and yellow and thickened Neuro General: patient alert, patient awake, patient oriented x3 and no focal motor deficits Extrem General: edema Laterality: left (significantly larger than right up to knee, not weeping) Objective Last Vital Signs Temp 36.5 C 05/01/23 10:50 Pulse 88 05/01/23 10:50 Resp 18 05/01/23 10:50 BP 118/64 05/01/23 10:50 Pulse Ox 97 05/01/23 10:50 Laboratory Results - last 24 hr 05/01/23 05:36 PT 24.0 H INR 2.4 H PAWSS Have you Been Recently Intoxicated or Drunk Within the Last 30 days?: No Have you Ever Experienced Previous Episodes of Alcohol Withdrawal?: No Have you ever Experienced Withdrawal Seizures?: No Have you ever Experienced Delirium Tremens(DT)s?: No Have you ever undergone Alcohol Rehabilitation Treatment (i.e, inpt ot outpatient treatment programs)?: No Have you ever Experienced Blackouts?: No Have you ever Combined Alcohol with other Downers within the last 90 days?: No Have you ever Combined Alcohol with any other Substance of Abuse during the last 90 days?: No Positive Blood Alcohol level on Presentation? [PCS.BAL]: No Evidence of Increased Autonomic Activity (i.e. HR>120, tremor, sweating, agitation, nausea)?: No Result: 0 Time Spent with Patient Time Spent with Patient: 25-34 minutes Time was spent: preparing to see the patient(eg.review tests), obtaining and/or reviewing separately otained hiistory, ordering medications,tests, procedures and indepentently interpreting results
[2023-05-01] MEDS: Hydrogen Peroxide 3% 480 ML BTL TP (13:35)
[2023-05-01] MEDS: Normal Saline Flush 10 ML SYR IVP (13:36)
[2023-05-01] MEDS: Normal Saline 500 ML 30 ML IV (13:41)
[2023-05-01 14:44] VITALS: BP 118/68; PULSE 88; RESP 18; TEMP 36.6; O2SAT 97
[2023-05-01 18:47] VITALS: BP 153/70; PULSE 60; RESP 18; TEMP 36.7; O2SAT 98
[2023-05-01] MEDS: Warfarin 5 MG TAB PO (19:57)
[2023-05-01] MEDS: Latanoprost 0.005% 2.5 ML BTL OU (19:58)
[2023-05-01] MEDS: Pramipexole 0.25 MG TAB 1.5 MG PO (20:04)
[2023-05-01 23:54] VITALS: BP 123/67; PULSE 88; RESP 18; TEMP 36.1; O2SAT 96
[2023-05-02 00:11] LABS: Vancomycin, Trough 18.3 ug/mL (10.0-20.0)
[2023-05-02] MEDS: VANCOMYCIN/WATER (PEG) 1 GM/200 ML BAG IV (01:40)
[2023-05-02] MEDS: PIPERACILLIN/TAZO 3.375 GM in Normal Saline 50 ML IVPB ×2 (01:41→09:09)
[2023-05-02] MEDS: Levothyroxine 100 MCG TAB 200 MCG PO (04:51)
[2023-05-02 06:56] VITALS: BP 113/68; PULSE 78; RESP 17; TEMP 36.6; O2SAT 96
[2023-05-02 07:00] LABS: INR 2.3 (0.9-1.1); Prothrombin Time 23.4 sec (9.3-11.0)
[2023-05-02] MEDS: Sacubitril/Valsartan 49 mg/51 mg TAB 1 EACH PO (09:03)
[2023-05-02] MEDS: Cholecalciferol (Vitamin D3) 400 UNIT TAB PO (09:04)
[2023-05-02] MEDS: Atorvastatin 40 MG TAB PO (09:04)
[2023-05-02] MEDS: Empaglifozin 25 MG TAB 12.5 MG PO (09:04)
[2023-05-02] MEDS: metFORMIN 500 MG TAB 1000 MG PO (09:04)
[2023-05-02] MEDS: Insulin Aspart 300 UNITS/3 ML PEN SC ×2 (09:09→11:53)
--- NOTE | 2023-05-02 11:27 | W.PM.DS.N ---
Date of service: 05/02/23 Time of Service: 11:27 DS: Diagnosis Discharge Diagnosis (1) Osteomyelitis of great toe of left foot: Status: Acute (2) Atrial fibrillation: Status: Chronic (3) Diabetes mellitus type 2 in obese: Status: Acute (4) Hypothyroidism: Status: Chronic (5) Restless leg syndrome: Status: Acute (6) Obstructive sleep apnea: Status: Chronic Discharge Plan Disposition Patient Disposition: Home Condition: Stable Discharge Details Reason For Visit: Osteomyelitis, Diabetic Foot Infection Admit Date/Time: 04/28/23 14:12 Admit Provider: Cholo Craven Attending Provider: Cholo Craven [facility] Course: This is a 78-year-old male patient with history of diabetes mellitus type 2 who is followed by a medical management trainer back in [place] reportedly visiting his [id number] having arrived Tuesday planning to leave this Tuesday.? Presented to the emergency department with complaints of diabetic foot and infection with increased swelling redness and pain to his left lower extremity. He states he has had multiple diabetic foot infections and is followed closely by podiatry he last saw his medical management trainer about 1 month ago.? He denies any fever or chills or signs of systemic infection.? His work-up in the emergency department included imaging that is concerning for osteomyelitis.? He was seen by orthopedics as we do not have podiatry here and no emergent surgical recommendations at this time.? He was given vancomycin and Zosyn and admitted to the medical surgical unit for IV therapy. Medically he remained stable with no signs of systemic infection blood cultures remained negative to date. He was afebrile with stable vital signs eating and drinking bowels and bladder functioning normally. He continued to receive Coumadin once his INR did fall below 3 and has been stable with an INR of 2.3 on day of discharge. Plan is for him to down step to levofloxacin return home and then follow-up with his outpatient team as soon as he returns home. He was advised to present to the closest emergency department should his symptoms worsen in route. He is discharged to home with no services discharge discussed with Dr. Jackson Home Meds and New Rx's Prescriptions: New levofloxacin 750 mg tablet 750 mg PO DAILY Qty: 14 0RF Continued latanoprost 0.005 % Drops 1 drp OPHTHALMIC (EYE) HS atorvastatin 40 mg Tablet 40 mg PO DAILY urea 20 % Cream 1 applic TOPICAL DAILY metformin 1,000 mg Tablet 1,000 mg PO BID warfarin 5 mg Tablet 5 mg PO DAILY albuterol sulfate 90 mcg/actuation Hfa Aerosol Inhaler 2 puff INHALATION Q6H PRN PRN cholecalciferol (vitamin D3) 10 mcg (400 unit) Tablet 10 mcg PO DAILY pramipexole 1.5 mg Tablet 1.5 mg PO QHS cyanocobalamin (vitamin B-12) 1,000 mcg/mL Kit 1,000 mcg IM QMONTH empagliflozin 25 mg Tablet 12.5 mg PO DAILY olodaterol 2.5 mcg/actuation Mist 2 inh INHALATION DAILY sacubitril-valsartan 49-51 mg Tablet 1 tab PO BID levothyroxine 200 mcg Capsule 200 mcg PO DAILY semaglutide 0.25 mg or 0.5 mg (2 mg/3 mL) Pen Injector 0.5 mg SUBCUT QWEEK furosemide [Lasix] 20 mg Tablet 40 mg PO QPM furosemide [Lasix] 20 mg Tablet 60 mg PO DAILY glucose 4 gram Tablet,Chewable 16 g PO PRN PRN Rx Instructions: for low glucose Discharge Instructions Instructions: Cellulitis (DC), Osteomyelitis (DC) Additional Instructions: elevate your leg as much as possible during the day your INR today is 2.3, you should continue coumadin and monitoring as previously directed. you've been given a 2 week supply of antibiotics, this will not complete course for osteomyelitis, you need to check with your primary care team to discuss further outpatient management and whether it is recommended you continue antibiotics or have surgical management of this infection. Stand Alone Forms: Nursing Discharge Form Referrals: No,Local [Primary Care Provider] - (follow up with your primary care provider and your medical management trainer as soon as you return home. ) Activity:: Activity as Tolerated Equipment/Supplies:: No Equipment Needed Diet:: Carb Counting Discharge Orders Discharge Orders: Discharge Order (Routine); Ordered 05/02/23 Ordered By: Berta Salgado Discharge Data Discharge Date/Time-TO BE ENTERED AT DEPARTURE: 05/02/23 12:28 DS: Summary Time Spent with Patient providing and/or coordinating discharge services: Less than 30 minutes Status at Discharge Functional status at discharge: independent ambulation Overall status at discharge: patient is not back to baseline Mental Status: mental status grossly normal Speech and Movement: speech and movement normal Mood: congruent mood Affect: normal affect Exam Const General: cooperative, comfortable and no acute distress Nutritional Appearance: obese Orientation: alert, awake and oriented x3 HENMT Head: normal to inspection, normocephalic and atraumatic Face and sinus: normal facial exam Mouth: oral mucosae normal Chest Chest: normal inspection of the chest Resp Effort & Inspection: normal respiratory effort Cardio Rate: regular rate GI Inspection: distended (round abd, soft non tender) Palpation: soft Skin General skin exam: crusts, dry skin, erythema (left, not impressively so, marked and falls just below knee) and other (chronic discoloration to bilateral lower extremities. ) Lesions: lesion noted (left great toe, erythema to 2 and 3 rd digit also) and other (areas of necrosis to left great toe, ) Nails: discolored and yellow and thickened Neuro General: patient alert, patient awake, patient oriented x3 and no focal motor deficits Extrem General: edema Laterality: left (significantly larger than right up to knee, not weeping) Psych Mental Status: mental status grossly normal Speech and Movement: speech and movement normal Mood: congruent mood Affect: normal affect DS: Data Vitals/I&O Vitals and I&O: Vital Signs Temperature 36.6 C 05/02/23 06:56 Temperature Source Tympanic 05/02/23 06:56 Pulse 78 05/02/23 06:56 Pulse Rhythm Regular 05/02/23 01:57 Respiratory Rate 17 05/02/23 06:56 Respiratory Effort Normal, Non-Labored 05/02/23 01:57 Respiratory Depth Normal 05/02/23 01:57 Respiratory Pattern Normal 05/02/23 01:57 Blood Pressure 113/68 05/02/23 06:56 Pulse Oximetry 96 05/02/23 06:56 Oxygen Delivery Method Room Air 05/02/23 06:56 Oxygen Flow Rate 0 05/02/23 06:56 Fraction of Inspired Oxygen (FIO2) 21 05/02/23 08:10 Pain Level 0 05/01/23 23:54 Intake & Output 05/01/23 05/01/23 05/02/23 11:59 23:59 11:59 Intake Total 650 / 1275 625 / 1275 100 / 100 Output Total 1000 / 1000 300 / 300 Balance -350 / 275 625 / 275 -200 / -200 Intake: IV 300 / 445 145 / 445 100 / 100 Oral 350 / 830 480 / 830 Output: Urine 1000 / 1000 300 / 300 Other: Urine Color Yellow Yellow Urine Appearance Clear Clear Clear Urine Odor None Comment Pt. denies any urinary symptoms at this time. Voiding Methods Urinal Data Completed and Pending Labs on day of discharge: Labs from last 24 hours 05/02/23 05/01/23 06:18 23:50 PT 23.4 H INR 2.3 H Vancomycin Trough 18.3 Preliminary micro results at discharge 04/28/23 11:59 Blood Culture - Preliminary Blood NO GROWTH 72 HOURS 04/28/23 11:40 Blood Culture - Preliminary Blood NO GROWTH 72 HOURS PFSH All Active Problems (Updated 04/29/23 @ 13:11 by Berta Salgado NP) Discharge planning issues (Acute) Obstructive sleep apnea (Chronic) Cellulitis of left leg (Acute) Restless leg syndrome (Acute) Hypothyroidism (Chronic) Diabetes mellitus type 2 in obese (Acute) Atrial fibrillation (Chronic) Osteomyelitis of great toe of left foot (Acute) Necrosis of toe (Acute) Social History Smoking/Tobacco Use Status: Never Smoking risk assessment performed?: Yes Alcohol Intake: current Alcohol Intake frequency: a few times a week Drug use: Never Substance use type: does not use Do you feel safe at home: Yes Do you feel safe in your relationship?: Yes Time Spent with Patient Time Spent with Patient: <45 minutes Time was spent: preparing to see the patient(eg.review tests), obtaining and/or reviewing separately otained hiistory, ordering medications,tests, procedures, indepentently interpreting results and counseling the patient
[2023-05-02 11:35] VITALS: BP 112/66; PULSE 61; RESP 17; TEMP 36.6; O2SAT 97
--- NOTE | 2023-05-02 13:03 | PDOC.CMDIS ---
Date of service: 05/02/23 Time of Service: 13:04 LACE Index Scoring Tool Questions: Length of Stay (in days): 4 - 6 Was the patient admitted via the E.D.?: Yes Comorbidities: Diabetes w/o Complication E.D. Visits: 0 Answers: Total Score: 8 Risk of Readmission: Low Risk Care Management Discharge Plan Reason for Hospitalization: Osteomyelitis, Diabetic foot infection; great toe of left foot Discharge Plan: Wilfred plans on returning to [place] upon discharge. Clinical information will be provided to patient and scanned to local providers in his home state. Patient/Family Education Needs: Review discharge instructions, discuss Ask Me Three.
== END 2023-05-02 12:28 | disposition home or self-care (01) | DRG 300 ==
LOC: ER 14:04 → MS 16:14
PROVIDERS: Nurse Practitioner Acute Care; Admitting Provider Internal Medicine; Emergency Provider Physician Assistant; Visit Provider Internal Medicine
DX: E11.52 Type 2 diabetes mellitus with diabetic peripheral angiopathy with gangrene (principal); I48.92 Unspecified atrial flutter; I96 Gangrene, not elsewhere classified; L03.116 Cellulitis of left lower limb; M86.172 Other acute osteomyelitis, left ankle and foot; E11.628 Type 2 diabetes mellitus with other skin complications; E11.65 Type 2 diabetes mellitus with hyperglycemia; I48.91 Unspecified atrial fibrillation; E11.69 Type 2 diabetes mellitus with other specified complication; E66.9 Obesity, unspecified; E03.9 Hypothyroidism, unspecified; Z68.36 Body mass index [BMI] 36.0-36.9, adult; G25.81 Restless legs syndrome; G47.33 Obstructive sleep apnea (adult) (pediatric); Z79.4 Long term (current) use of insulin; Z79.01 Long term (current) use of anticoagulants
CPT/HCPCS: 36415; 80048; 80053; 82962; 87040; 94640; 96365; 96368; 99285; 73590; 73630; 80202; 83036; 83605; 84443; 85025; 85610; 86140; 94664; 99223; 99233; 99238; J2543; J3490